=== PATIENT | female | born 1945 | race Caucasian/White ===

== ENCOUNTER 2022-10-30 21:54 | Inpatient (IN) | payer OTHER, MEDICAID ==
[2022-10-30] MEDS ORDERED: Azithromycin 500 MG VIAL ONE (22:34)
[2022-10-30 22:48] LABS: Anion Gap 13 mmol/L (10-20); BUN (Urea Nitrogen) 22 mg/dL (9.8-20.1); Calc. Creatinine Clearance 0 mL/min (70-130); Calcium 9.1 mg/dL (7.8-10.44); Carbon Dioxide 22 mmol/L (23-31); Chloride 101 mmol/L (98-107); Estimated GFR 51; Glucose 98 mg/dL (83-110); Potassium 3.7 mmol/L (3.5-5.1); Sodium 132 mmol/L (136-145)
[2022-10-30 22:51] LABS: #Basophils 0.1 10x3/uL (0.0-0.2); #Neutrophils 11.3 10x3/uL (1.5-8.4); %Basophils 0.4 % (0.0-2.0); %Eosinophils 0.1 % (0.0-6.0); %Lymphocytes 13.2 % (18.0-47.0); %Monocytes 6.7 % (0.0-10.0); %Neutrophils 79.1 % (40.0-75.0); Hemoglobin 11.1 g/dL (12.0-15.5); Mean Corpuscular HGB CONC 33.4 g/dL (32.0-36.0); Mean Corpuscular Hemoglobin 32.5 pg (27.0-33.0); Mean Corpuscular Volume 97.1 fl (81.6-98.3); Mean Platelet Volume 9.4 fl (7.4-10.4); Platelet Count 211 10x3/uL (150-450); RBC Distribution Width 14.6 % (11.5-14.5); Red Blood Cell (RBC) Count 3.42 10x6/uL (3.90-5.03); White Blood Cell (WBC) Count 14.3 10x3/uL (3.5-10.5)
[2022-10-31] MEDS ORDERED: Communication Order-Pharmacy FS SCH (00:36)
[2022-10-31] MEDS ORDERED: Furosemide 20 MG/2 ML VIAL SLOW IVP SCH (01:30)
[2022-10-31] MEDS ORDERED: Cefepime 2 GM VIAL ONE ×2 (02:00→13:40)
[2022-10-31] MEDS ORDERED: Furosemide 40 MG/4 ML VIAL ONE ×2 (02:07→11:10)
[2022-10-31] MEDS ORDERED: Thiamine HCl 200 MG/2 ML VIAL ONE (02:08)
[2022-10-31] MEDS ORDERED: Nicotine 14 MG PATCH ONE (02:09)
[2022-10-31] MEDS ORDERED: Vancomycin HCl 1 GM in Sodium Chloride 0.9% 250 ML 250 ML IVPB SCH (02:15)
[2022-10-31] MEDS: Nicotine 21 MG PATCH TD SCH (02:22)
[2022-10-31] MEDS: Cefepime 2 GM in Sodium Chloride 0.9% 100 ML IVPB SCH ×2 (02:24→13:47)
[2022-10-31] MEDS: Thiamine HCl 200 MG/2 ML VIAL SLOW IVP SCH (02:25)
[2022-10-31] MEDS ORDERED: Budesonide 0.5 MG/2 ML NEB ONE (02:39)
[2022-10-31] MEDS: Budesonide 0.5 MG/2 ML NEB NEB SCH ×2 (02:47→16:33)
[2022-10-31] MEDS ORDERED: Vancomycin HCl 0.75 GM in Sodium Chloride 0.9% 250 ML 300 ML IVPB SCH (03:00)
[2022-10-31] MEDS ORDERED: Vancomycin 1 GM VIAL ONE (03:02)
[2022-10-31 03:42] LABS: Hemoglobin 10.7 g/dL (12.0-15.5); Mean Corpuscular HGB CONC 33.2 g/dL (32.0-36.0); Mean Corpuscular Hemoglobin 32.5 pg (27.0-33.0); Mean Corpuscular Volume 97.9 fl (81.6-98.3); Mean Platelet Volume 9.6 fl (7.4-10.4); Platelet Count 210 10x3/uL (150-450); RBC Distribution Width 14.4 % (11.5-14.5); Red Blood Cell (RBC) Count 3.29 10x6/uL (3.90-5.03); White Blood Cell (WBC) Count 12.8 10x3/uL (3.5-10.5)
[2022-10-31 03:53] LABS: MDiff Complete? YES
[2022-10-31 03:55] LABS: Anion Gap 11 mmol/L (10-20); BUN (Urea Nitrogen) 21 mg/dL (9.8-20.1); Calc. Creatinine Clearance 45 mL/min (70-130); Calcium 8.7 mg/dL (7.8-10.44); Carbon Dioxide 23 mmol/L (23-31); Chloride 104 mmol/L (98-107); Estimated GFR 65; Glucose 106 mg/dL (83-110); Magnesium 1.6 mg/dL (1.6-2.6); Sodium 134 mmol/L (136-145)
[2022-10-31 04:12] LABS: Band 8 % (5-11); Lymphocytes 9 % (21-51); Metamyelocyte 2 % (0-0); Monocytes 2 % (0-10); Neutrophil 78 % (42-75); Reactive Lymphocytes 1 % (0-10)
[2022-10-31 04:13] LABS: Platelet Morphology Comment Appears Adequate; RBC Morphology Normal
[2022-10-31] MEDS ORDERED: Acetaminophen 325 MG TAB ONE (05:52)
[2022-10-31] MEDS ORDERED: Multivitamin W/ Minerals 1 TAB ONE (08:00)
[2022-10-31] MEDS ORDERED: Aspirin Chewable 81 MG TAB ONE (08:00)
[2022-10-31] MEDS ORDERED: Folic Acid 1 MG TAB ONE (08:00)
[2022-10-31] MEDS ORDERED: Enoxaparin Sodium 40 MG/0.4 ML SYRINGE ONE (08:08)
[2022-10-31] MEDS: Carvedilol 6.25 MG TAB PO SCH ×2 (08:15→17:58)
[2022-10-31] MEDS: Aspirin 81 mg Enteric Coated Tablet PO SCH (08:16)
[2022-10-31] MEDS: Enoxaparin Sodium 40 MG/0.4 ML SYRINGE SC SCH (08:16)
[2022-10-31] MEDS: Multivitamin W/ Minerals 1 TAB PO SCH (08:16)
[2022-10-31] MEDS: Folic Acid 1 MG TAB PO SCH (08:16)
[2022-10-31] MEDS: Spironolactone 25 MG TAB PO SCH (08:45)
[2022-10-31] MEDS: Losartan 25 MG TAB PO SCH (08:45)
[2022-10-31] MEDS ORDERED: methylPREDNISolone Sod Succ 40 MG VIAL IVP SCH (09:30)
[2022-10-31] MEDS ORDERED: Furosemide 40 MG/4 ML VIAL SLOW IVP SCH (09:30)
[2022-10-31] MEDS ORDERED: Magnesium 2 GM/50 ML(in water) 2 GM in Premix Bag 1 BAG IVPB SCH (10:00)
[2022-10-31] MEDS ORDERED: Magnesium 2 GM/50 ML BAG (IN WATER) ONE (11:10)
[2022-10-31] MEDS ORDERED: methylPREDNISolone Sod Succ 40 MG VIAL ONE (11:10)
[2022-10-31] MEDS ORDERED: FLU VACC QS2022-23(65YR UP)/PF 240 MCG/0.7 ML SYRINGE IM ONE (14:45)
[2022-10-31] MEDS: Vancomycin HCl 500 MG in Sodium Chloride 0.9% 100 ML IVPB SCH (15:32)
[2022-10-31 18:45] LABS: Bilirubin Neg (Negative); Blood, Urine Negative (Negative); Clarity Clear (Clear); Glucose, Urine (Dipstick) Normal (Negative); Ketone, Urine Negative (Negative); Leukocyte Negative (Negative); Nitrite Negative (Negative); Protein, Urine (Dipstick) 15 mg/dl (Neg-Trace); Urobilinogen Normal mg/dL (Less than 2); pH, Urine 6.5 (5.0-9.0)
[2022-10-31 19:17] LABS: Legionella Urinary Ag Negative (Negative); Strep pneumo Urine Ag NEGATIVE (NEGATIVE)
[2022-10-31 19:37] LABS: Bacteria/HPF None Seen HPF (None Seen); RBC/HPF None Seen HPF (0-3); Squamous Epithelial 0-3 HPF (0-3); WBC/HPF None Seen HPF (0-3)
[2022-10-31] MEDS: Acetaminophen 325 MG TAB PO PRN (20:40)
[2022-10-31] MEDS: Azithromycin 500 MG in Sodium Chloride 0.9% 250 ML 250 ML IVPB SCH (20:41)
[2022-10-31] MEDS: Atorvastatin Calcium 40 MG TAB PO SCH (20:41)
[2022-10-31] MEDS: methylPREDNISolone Sod Succ 40 MG VIAL IVP SCH (20:42)
[2022-10-31 22:29] LABS: Actual Bicarbonate (HCO3a) 22.6 mEq/L (22-28); Base Excess (BEa) -0.1 mEq/L (-2.0 to +3.0); CO2 Tension 30.6 mmHg (35.0-45.0); Calcium, Ionized (arterial) 1.14 mmol/L (1.12-1.30); Carboxyhemoglobin (COHb) 1.4 gm% (0.0-3.0); Critical Notified By: CP.PH; Hemoglobin (Hb) 11.6 g/dL (12.0-16.0); O2 Tension (PaO2), arterial 96.8 mmHg (> 70.0); Potassium - ABG Lab 3.9 mmol/L (3.70-5.30); Puncture Site RRA; RapidComm Collect By CP.PH; pH, Arterial 7.49 (7.35-7.45)
[2022-11-01] MEDS: Cefepime 2 GM in Sodium Chloride 0.9% 100 ML IVPB SCH ×2 (02:02→14:10)
[2022-11-01] MEDS: Vancomycin HCl 500 MG in Sodium Chloride 0.9% 100 ML IVPB SCH ×2 (02:07→12:59)
[2022-11-01] MEDS: Nicotine 21 MG PATCH TD SCH (02:12)
[2022-11-01] MEDS: Thiamine HCl 200 MG/2 ML VIAL SLOW IVP SCH (02:23)
[2022-11-01] MEDS ORDERED: Vancomycin HCl 500 MG in Sodium Chloride 0.9% 100 ML IVPB SCH (03:00)
[2022-11-01 04:43] LABS: Anion Gap 12 mmol/L (10-20); BUN (Urea Nitrogen) 15 mg/dL (9.8-20.1); CRP (Inflammatory) 20.93 mg/dL (= or < 0.5); Calc. Creatinine Clearance 56 mL/min (70-130); Calcium 8.7 mg/dL (7.8-10.44); Carbon Dioxide 22 mmol/L (23-31); Chloride 108 mmol/L (98-107); Estimated GFR 85; Glucose 157 mg/dL (83-110); Potassium 3.6 mmol/L (3.5-5.1); Sodium 138 mmol/L (136-145)
[2022-11-01] MEDS ORDERED: Potassium Chloride 20 MEQ in Premix Bag 1 BAG IVPB SCH (06:15)
[2022-11-01] MEDS: Furosemide 40 MG TAB PO SCH (06:45)
[2022-11-01] MEDS: methylPREDNISolone Sod Succ 40 MG VIAL IVP SCH ×2 (08:23→20:47)
[2022-11-01] MEDS: Losartan 25 MG TAB PO SCH (08:23)
[2022-11-01] MEDS: Enoxaparin Sodium 40 MG/0.4 ML SYRINGE SC SCH (08:23)
[2022-11-01] MEDS: Aspirin 81 mg Enteric Coated Tablet PO SCH (08:23)
[2022-11-01] MEDS: Multivitamin W/ Minerals 1 TAB PO SCH (08:23)
[2022-11-01] MEDS: Folic Acid 1 MG TAB PO SCH (08:23)
[2022-11-01] MEDS: Spironolactone 25 MG TAB PO SCH (08:23)
[2022-11-01] MEDS: Carvedilol 6.25 MG TAB PO SCH ×2 (08:23→16:43)
[2022-11-01] MEDS: Budesonide 0.5 MG/2 ML NEB NEB SCH ×2 (09:15→18:40)
[2022-11-01 13:00] LABS: Vancomycin, Trough 11.5 ug/mL
[2022-11-01] MEDS: Ondansetron PF 4 MG/2 ML Vial IVP PRN (16:04)
[2022-11-01] MEDS: Atorvastatin Calcium 40 MG TAB PO SCH (20:47)
[2022-11-01] MEDS: Azithromycin 500 MG in Sodium Chloride 0.9% 250 ML 250 ML IVPB SCH (21:01)
[2022-11-02] MEDS: Nicotine 21 MG PATCH TD SCH (01:49)
[2022-11-02] MEDS: Cefepime 2 GM in Sodium Chloride 0.9% 100 ML IVPB SCH ×2 (01:52→14:01)
[2022-11-02] MEDS: Thiamine HCl 200 MG/2 ML VIAL SLOW IVP SCH (01:52)
[2022-11-02] MEDS ORDERED: Vancomycin HCl 750 MG in Sodium Chloride 0.9% 250 ML 250 ML IVPB SCH (02:00)
[2022-11-02 05:09] LABS: Anion Gap 10 mmol/L (10-20); BUN (Urea Nitrogen) 15 mg/dL (9.8-20.1); CRP (Inflammatory) 6.93 mg/dL (= or < 0.5); Calc. Creatinine Clearance 66 mL/min (70-130); Carbon Dioxide 25 mmol/L (23-31); Chloride 105 mmol/L (98-107); Estimated GFR 89; Glucose 154 mg/dL (83-110); Potassium 4.5 mmol/L (3.5-5.1); Sodium 135 mmol/L (136-145)
[2022-11-02 05:29] LABS: Hemoglobin 11.5 g/dL (12.0-15.5); Mean Corpuscular HGB CONC 33.3 g/dL (32.0-36.0); Mean Corpuscular Hemoglobin 32.5 pg (27.0-33.0); Mean Corpuscular Volume 97.5 fl (81.6-98.3); Mean Platelet Volume 9.8 fl (7.4-10.4); Platelet Count 301 10x3/uL (150-450); Red Blood Cell (RBC) Count 3.54 10x6/uL (3.90-5.03); White Blood Cell (WBC) Count 11.6 10x3/uL (3.5-10.5)
[2022-11-02 05:31] LABS: MDiff Complete? YES
[2022-11-02 06:30] LABS: Band 8 % (5-11); Lymphocytes 6 % (21-51); Monocytes 3 % (0-10); Neutrophil 83 % (42-75)
[2022-11-02 06:31] LABS: Platelet Morphology Comment Appears Adequate; RBC Morphology Normal
[2022-11-02] MEDS: Budesonide 0.5 MG/2 ML NEB NEB SCH ×2 (07:30→19:35)
[2022-11-02] MEDS: Ondansetron PF 4 MG/2 ML Vial IVP PRN ×2 (07:52→19:50)
[2022-11-02] MEDS: Aspirin 81 mg Enteric Coated Tablet PO SCH (08:33)
[2022-11-02] MEDS: Folic Acid 1 MG TAB PO SCH (08:33)
[2022-11-02] MEDS: methylPREDNISolone Sod Succ 40 MG VIAL IVP SCH ×2 (08:33→19:50)
[2022-11-02] MEDS: Losartan 25 MG TAB PO SCH (08:34)
[2022-11-02] MEDS: Carvedilol 6.25 MG TAB PO SCH ×2 (08:34→17:07)
[2022-11-02] MEDS: Furosemide 40 MG TAB PO SCH (08:34)
[2022-11-02] MEDS: Multivitamin W/ Minerals 1 TAB PO SCH (08:34)
[2022-11-02] MEDS: Spironolactone 25 MG TAB PO SCH (08:35)
[2022-11-02] MEDS: Enoxaparin Sodium 40 MG/0.4 ML SYRINGE SC SCH (08:43)
[2022-11-02] MEDS: Atorvastatin Calcium 40 MG TAB PO SCH (19:49)
[2022-11-02] MEDS: Acetaminophen 325 MG TAB PO PRN (19:50)
[2022-11-03] MEDS: Azithromycin 500 MG in Sodium Chloride 0.9% 250 ML 250 ML IVPB SCH (00:35)
[2022-11-03] MEDS: Thiamine HCl 200 MG/2 ML VIAL SLOW IVP SCH (01:21)
[2022-11-03] MEDS: Nicotine 21 MG PATCH TD SCH (01:22)
[2022-11-03] MEDS: Acetaminophen 325 MG TAB PO PRN ×2 (03:48→10:17)
[2022-11-03] MEDS: Cefepime 2 GM in Sodium Chloride 0.9% 100 ML IVPB SCH (04:04)
[2022-11-03] MEDS ORDERED: HYDROcodone/Acetaminophen 5/325 mg Tablet PO SCH (06:00)
[2022-11-03] MEDS: Budesonide 0.5 MG/2 ML NEB NEB SCH ×2 (06:55→18:48)
[2022-11-03] MEDS: Multivitamin W/ Minerals 1 TAB PO SCH (08:13)
[2022-11-03] MEDS: predniSONE 20 MG TAB PO SCH (08:13)
[2022-11-03] MEDS: Carvedilol 6.25 MG TAB PO SCH ×2 (08:13→18:04)
[2022-11-03] MEDS: Aspirin 81 mg Enteric Coated Tablet PO SCH (08:13)
[2022-11-03] MEDS: Folic Acid 1 MG TAB PO SCH (08:13)
[2022-11-03] MEDS: Spironolactone 25 MG TAB PO SCH (08:13)
[2022-11-03] MEDS: Furosemide 40 MG TAB PO SCH (08:13)
[2022-11-03] MEDS: Enoxaparin Sodium 40 MG/0.4 ML SYRINGE SC SCH (08:14)
[2022-11-03] MEDS: Losartan 25 MG TAB PO SCH (08:14)
[2022-11-03] MEDS: Doxycycline 100 MG CAP PO SCH ×2 (08:14→20:59)
[2022-11-03] MEDS ORDERED: Ondansetron ODT 4 MG TAB PO PRN (18:21)
[2022-11-03] MEDS: Atorvastatin Calcium 40 MG TAB PO SCH (20:59)
[2022-11-04] MEDS: Budesonide 0.5 MG/2 ML NEB NEB SCH ×2 (07:10→19:50)
[2022-11-04] MEDS: Nicotine 21 MG PATCH TD SCH (07:18)
[2022-11-04] MEDS: Enoxaparin Sodium 40 MG/0.4 ML SYRINGE SC SCH (09:01)
[2022-11-04] MEDS: Furosemide 40 MG TAB PO SCH (09:01)
[2022-11-04] MEDS: Spironolactone 25 MG TAB PO SCH (09:02)
[2022-11-04] MEDS: Aspirin 81 mg Enteric Coated Tablet PO SCH (09:02)
[2022-11-04] MEDS: Losartan 25 MG TAB PO SCH (09:02)
[2022-11-04] MEDS: Folic Acid 1 MG TAB PO SCH (09:02)
[2022-11-04] MEDS: Carvedilol 6.25 MG TAB PO SCH ×2 (09:02→18:39)
[2022-11-04] MEDS: Multivitamin W/ Minerals 1 TAB PO SCH (09:02)
[2022-11-04] MEDS: Doxycycline 100 MG CAP PO SCH ×2 (09:02→21:44)
[2022-11-04] MEDS: predniSONE 20 MG TAB PO SCH (09:02)
[2022-11-04] MEDS: Ondansetron PF 4 MG/2 ML Vial IVP PRN (11:17)
[2022-11-04] MEDS ORDERED: ALPRAZolam 0.25 MG TAB PO SCH (12:00)
[2022-11-04] MEDS: Atorvastatin Calcium 40 MG TAB PO SCH (21:44)
[2022-11-05] MEDS: Nicotine 21 MG PATCH TD SCH (02:28)
[2022-11-05] MEDS: Budesonide 0.5 MG/2 ML NEB NEB SCH ×2 (07:25→19:31)
[2022-11-05] MEDS: Spironolactone 25 MG TAB PO SCH (08:38)
[2022-11-05] MEDS: Enoxaparin Sodium 40 MG/0.4 ML SYRINGE SC SCH (08:38)
[2022-11-05] MEDS: Carvedilol 6.25 MG TAB PO SCH ×2 (08:38→18:53)
[2022-11-05] MEDS: Furosemide 40 MG TAB PO SCH (08:39)
[2022-11-05] MEDS: Losartan 25 MG TAB PO SCH (08:39)
[2022-11-05] MEDS: predniSONE 20 MG TAB PO SCH (08:39)
[2022-11-05] MEDS: Aspirin 81 mg Enteric Coated Tablet PO SCH (08:39)
[2022-11-05] MEDS: Folic Acid 1 MG TAB PO SCH (08:39)
[2022-11-05] MEDS: Multivitamin W/ Minerals 1 TAB PO SCH (08:40)
[2022-11-05] MEDS: Doxycycline 100 MG CAP PO SCH ×2 (08:40→20:00)
[2022-11-05] MEDS: Acetaminophen 325 MG TAB PO PRN (11:56)
[2022-11-05] MEDS: ALPRAZolam 0.25 MG TAB PO PRN (11:59)
[2022-11-05] MEDS: Atorvastatin Calcium 40 MG TAB PO SCH (20:00)
[2022-11-06] MEDS: Nicotine 21 MG PATCH TD SCH (01:30)
[2022-11-06] MEDS: Budesonide 0.5 MG/2 ML NEB NEB SCH (06:50)
[2022-11-06] MEDS: Multivitamin W/ Minerals 1 TAB PO SCH (10:02)
[2022-11-06] MEDS: Folic Acid 1 MG TAB PO SCH (10:02)
[2022-11-06] MEDS: Furosemide 40 MG TAB PO SCH (10:02)
[2022-11-06] MEDS: Doxycycline 100 MG CAP PO SCH (10:03)
[2022-11-06] MEDS: Losartan 25 MG TAB PO SCH (10:03)
[2022-11-06] MEDS: Carvedilol 6.25 MG TAB PO SCH (10:03)
[2022-11-06] MEDS: Spironolactone 25 MG TAB PO SCH (10:03)
[2022-11-06] MEDS: predniSONE 20 MG TAB PO SCH (10:03)
[2022-11-06] MEDS: Aspirin 81 mg Enteric Coated Tablet PO SCH (10:03)
[2022-11-06] MEDS: Enoxaparin Sodium 40 MG/0.4 ML SYRINGE SC SCH (10:04)
[2022-11-06] MEDS: ALPRAZolam 0.25 MG TAB PO PRN (15:11)
[2022-11-06 16:21] VITALS: BP 114/61; TEMP 97.9
== END 2022-11-06 04:45 | disposition home or self-care (01) | DRG 871 ==
LOC: CSHERS 21:54 → CSHERHOLD 10-31 01:22 → CSHTELE 10-31 14:27 → CSHIMCU 10-31 21:48 → CSHTELE 11-02 20:26
PROVIDERS: ADMIT Family Medicine; ATTEND Family Medicine
DX: A41.59 Other Gram-negative sepsis (principal); I50.43 Acute on chronic combined systolic (congestive) and diastolic (congestive) heart failure; J96.01 Acute respiratory failure with hypoxia; J15.6 Pneumonia due to other Gram-negative bacteria; J44.1 Chronic obstructive pulmonary disease with (acute) exacerbation; J44.0 Chronic obstructive pulmonary disease with (acute) lower respiratory infection; Z20.822 Contact with and (suspected) exposure to COVID-19; I25.10 Atherosclerotic heart disease of native coronary artery without angina pectoris; F17.210 Nicotine dependence, cigarettes, uncomplicated; I11.0 Hypertensive heart disease with heart failure; E78.5 Hyperlipidemia, unspecified; M19.90 Unspecified osteoarthritis, unspecified site; F32.A Depression, unspecified; Z96.652 Presence of left artificial knee joint; D75.89 Other specified diseases of blood and blood-forming organs; I25.5 Ischemic cardiomyopathy; Z95.810 Presence of automatic (implantable) cardiac defibrillator; Z95.1 Presence of aortocoronary bypass graft; Z71.6 Tobacco abuse counseling; Z79.899 Other long term (current) drug therapy; Z79.82 Long term (current) use of aspirin; Z79.52 Long term (current) use of systemic steroids; Z88.1 Allergy status to other antibiotic agents; Z88.0 Allergy status to penicillin; Z88.8 Allergy status to other drugs, medicaments and biological substances; Z98.49 Cataract extraction status, unspecified eye; Z90.49 Acquired absence of other specified parts of digestive tract; Z90.89 Acquired absence of other organs
CPT/HCPCS: 36415; 36416; 36600; 71045; 80048; 80202; 81001; 82607; 82805; 83605; 83735; 83880; 84145; 85025; 86140; 87070; 87205; 87449; 87899; 93005; 94640; 94660; 94760; 96374; J0456; J0692; J1650; J1940; J2405; J2920; J3370; J3411; J3475; J3480; J3490; J7050; J7512; J7620; J7626; U0003; U0005